=== PATIENT | male | born 1945 | race Caucasian/White ===

== ENCOUNTER 2019-07-22 07:34 | Day surgery (SDC) | payer MEDICARE, BC ==
[~2019-07-22] VITALS: Ht 175.3 cm; Wt 81.1 kg
[~2019-07-22 07:34] MED LIST: CELE100 PO; Lialda1.2 GM PO; METF500 PO; Purinethol50 MG PO
== END 2019-07-22 10:02 | disposition home or self-care (01) ==
LOC: ORSCSDS 07:34
PROVIDERS: Internal Medicine Gastroenterology
PROC: 0DBE8ZX Excision of Large Intestine, Via Natural or Artificial Opening Endoscopic, Diagnostic (ICD-10-PCS; principal; 2019-07-22 09:00)
PROC: 0DBP8ZX Excision of Rectum, Via Natural or Artificial Opening Endoscopic, Diagnostic (ICD-10-PCS; principal; 2019-07-22 09:00)
DX: K51.90 Ulcerative colitis, unspecified, without complications (principal); K62.1 Rectal polyp; K64.1 Second degree hemorrhoids; E11.9 Type 2 diabetes mellitus without complications; Z79.84 Long term (current) use of oral hypoglycemic drugs; Z79.899 Other long term (current) drug therapy
CPT/HCPCS: 82947; J0330; J2405; J2704; J7120

== ENCOUNTER → 2022-11-19 | Outpatient (CLI) | payer MEDICARE | LOC: LAB SHORT 15:02 → PLD 15:02 | DX: L72.9 Follicular cyst of the skin and subcutaneous tissue, unspecified (principal) | CPT/HCPCS: 88304 ==

== ENCOUNTER 2024-04-15 08:00 | Day surgery (SDC) | payer MEDICARE ==
[~2024-04-15] VITALS: Ht 175.3 cm; Wt 80.9 kg
[~2024-04-15 08:00] MED LIST changes: +ALEN10 PO; +GABA100; +GALA4 PO
[2024-04-15] MEDS ORDERED: Lactated Ringer's 1,000 ML IV ONE ×2 (09:03→09:16)
[2024-04-15] MEDS ORDERED: propofoL 50 ML IV ONE (09:04)
[2024-04-15 10:57] VITALS: BP 116/83
== END 2024-04-15 10:50 | disposition home or self-care (01) ==
LOC: ORSCSDS 08:00
PROVIDERS: Internal Medicine Gastroenterology
PROC: 0DBL8ZX Excision of Transverse Colon, Via Natural or Artificial Opening Endoscopic, Diagnostic (ICD-10-PCS; principal; 2024-04-15 09:30)
PROC: 0DBN8ZX Excision of Sigmoid Colon, Via Natural or Artificial Opening Endoscopic, Diagnostic (ICD-10-PCS; principal; 2024-04-15 09:30)
PROC: 0DBP8ZX Excision of Rectum, Via Natural or Artificial Opening Endoscopic, Diagnostic (ICD-10-PCS; principal; 2024-04-15 09:30)
PROC: 0DBK8ZX Excision of Ascending Colon, Via Natural or Artificial Opening Endoscopic, Diagnostic (ICD-10-PCS; principal; 2024-04-15 09:30)
PROC: 0DBH8ZX Excision of Cecum, Via Natural or Artificial Opening Endoscopic, Diagnostic (ICD-10-PCS; principal; 2024-04-15 09:30)
PROC: 0DBM8ZX Excision of Descending Colon, Via Natural or Artificial Opening Endoscopic, Diagnostic (ICD-10-PCS; principal; 2024-04-15 09:30)
DX: K51.90 Ulcerative colitis, unspecified, without complications (principal); K63.5 Polyp of colon; Z86.0102 Personal history of hyperplastic colon polyps; K64.8 Other hemorrhoids; E11.9 Type 2 diabetes mellitus without complications; Z86.19 Personal history of other infectious and parasitic diseases; G47.33 Obstructive sleep apnea (adult) (pediatric); E78.5 Hyperlipidemia, unspecified; Z79.84 Long term (current) use of oral hypoglycemic drugs; Z79.899 Other long term (current) drug therapy; Z87.891 Personal history of nicotine dependence
CPT/HCPCS: 82947; 88305; J2704; J7120

== ENCOUNTER 2024-04-21 09:29 | Day surgery (SDC) | payer MEDICARE ==
[~2024-04-21] VITALS: Ht 175.3 cm; Wt 81.4 kg
[~2024-04-21 09:29] MED LIST changes: +Balanced Salt Epinephrine Irrigation Solution 500 mL IR SCH; +Diazepam 5 MG Tab PO PRN; +Diazepam 5 MG Tab PO SCH; +Lidocaine HCl/Pf 1% 5 ML VIAL XX SCH; +Moxifloxacin HCL 0.5 MG/0.1 ML 0.4MLSYR LEFTEYE SCH; +Ondansetron 4 MG SoluTab MM PRN; +PHENYLEPHRINE\\TROPICAMIDE\\TETRACAINE OPHTHALMIC DILATING SOLN LEFTEYE PRN; +Povidone-Iodine 450 DROP/30 ML Solution LEFTEYE SCH; +Povidone-Iodine 450 DROP/30 ML Solution ONE; +Tetracaine HCl/Pf 0.5% Opth Soln 4 ml ONE
[2024-04-21] MEDS ORDERED: Diazepam 10 MG Tab ONE (10:25)
[2024-04-21] MEDS ORDERED: Ondansetron HCl 2 MG / ML 2ML Vial ONE (11:14)
[2024-04-21 11:47] VITALS: BP 121/85
--- NOTE | 2024-04-21 11:50 | NUR ---
04/21/24 1150 Ratna Jacobs HANDOFF TO GWENDOLYN KATZ
== END 2024-04-21 12:08 | disposition home or self-care (01) ==
LOC: ORSCSDS 09:29
PROVIDERS: Student in an Organized Health Care Education/Training Program
PROC: 08RK3JZ Replacement of Left Lens with Synthetic Substitute, Percutaneous Approach (ICD-10-PCS; principal; 2024-04-21 11:00)
DX: H25.813 Combined forms of age-related cataract, bilateral (principal); H52.202 Unspecified astigmatism, left eye; H21.81 Floppy iris syndrome; G47.33 Obstructive sleep apnea (adult) (pediatric); Z87.891 Personal history of nicotine dependence; E11.9 Type 2 diabetes mellitus without complications; Z79.84 Long term (current) use of oral hypoglycemic drugs; J45.909 Unspecified asthma, uncomplicated; Z79.899 Other long term (current) drug therapy
CPT/HCPCS: 82947; A9270; J2405; V2632

== ENCOUNTER 2024-04-28 08:59 | Day surgery (SDC) | payer MEDICARE ==
[~2024-04-28] VITALS: Ht 175.3 cm; Wt 52.8 kg
[~2024-04-28 08:59] MED LIST changes: -Diazepam 5 MG Tab PO PRN; -Diazepam 5 MG Tab PO SCH; -Moxifloxacin HCL 0.5 MG/0.1 ML 0.4MLSYR LEFTEYE SCH; +Moxifloxacin HCL 0.5 MG/0.1 ML 0.4MLSYR RIGHTEYE SCH; +NS 500 ML IV ONE; -Ondansetron 4 MG SoluTab MM PRN; -PHENYLEPHRINE\\TROPICAMIDE\\TETRACAINE OPHTHALMIC DILATING SOLN LEFTEYE PRN; +PHENYLEPHRINE\\TROPICAMIDE\\TETRACAINE OPHTHALMIC DILATING SOLN RIGHTEYE PRN; -Povidone-Iodine 450 DROP/30 ML Solution LEFTEYE SCH; +Povidone-Iodine 450 DROP/30 ML Solution RIGHTEYE SCH
[2024-04-28] MEDS ORDERED: NS 500 ML IV ONE (09:14)
[2024-04-28] MEDS ORDERED: FentaNYL Citrate 50 MCG/ML 2 ML Injection ONE (09:54)
[2024-04-28] MEDS ORDERED: Midazolam HCl 1MG / ML 2ML Vial ONE (09:54)
[2024-04-28 10:32] VITALS: BP 127/86
== END 2024-04-28 10:45 | disposition home or self-care (01) ==
LOC: ORSCSDS 08:59
PROVIDERS: Student in an Organized Health Care Education/Training Program
PROC: 08RJ3JZ Replacement of Right Lens with Synthetic Substitute, Percutaneous Approach (ICD-10-PCS; principal; 2024-04-28 11:00)
DX: E11.36 Type 2 diabetes mellitus with diabetic cataract (principal); H25.811 Combined forms of age-related cataract, right eye; H52.201 Unspecified astigmatism, right eye; Z96.1 Presence of intraocular lens; G47.33 Obstructive sleep apnea (adult) (pediatric); J45.909 Unspecified asthma, uncomplicated; K21.9 Gastro-esophageal reflux disease without esophagitis; Z79.84 Long term (current) use of oral hypoglycemic drugs; Z79.899 Other long term (current) drug therapy; I25.2 Old myocardial infarction
CPT/HCPCS: 82947; J2250; J3010; J7040; V2632

== ENCOUNTER 2024-05-18 07:53 | Day surgery (SDC) | payer MEDICARE ==
[~2024-05-18] VITALS: Ht 175.3 cm; Wt 79.8 kg
[~2024-05-18 07:53] MED LIST changes: -Balanced Salt Epinephrine Irrigation Solution 500 mL IR SCH; +Lactated Ringer's 1,000 ML IV ONE; -Lidocaine HCl/Pf 1% 5 ML VIAL XX SCH; -Moxifloxacin HCL 0.5 MG/0.1 ML 0.4MLSYR RIGHTEYE SCH; -NS 500 ML IV ONE; -PHENYLEPHRINE\\TROPICAMIDE\\TETRACAINE OPHTHALMIC DILATING SOLN RIGHTEYE PRN; -Povidone-Iodine 450 DROP/30 ML Solution ONE; -Povidone-Iodine 450 DROP/30 ML Solution RIGHTEYE SCH; -Tetracaine HCl/Pf 0.5% Opth Soln 4 ml ONE; +propofoL 50 ML IV ONE
[2024-05-18] MEDS ORDERED: Lactated Ringer's 1,000 ML IV ONE (09:51)
--- NOTE | 2024-05-18 10:38 | NUR ---
05/18/24 0002 Suzette Yusuf 4.5ML NACL USED FOR INJECTION FOR POLYPS
--- NOTE | 2024-05-18 11:42 | NUR ---
05/18/24 1142 Suzette Yusuf PT. FEELING PRESSURE VERBALIZES NEEDING TO URINATE. PT. VERBALIZES FEELING BLOATED, PT. UP TO BR & ABLE TO PASS OUT SOME AIR. PER PT. IT WASN'T FEEL THE BLOATEDNESS FROM NEEDING TO URINATE IT WAS THE AIR. PER PT., PT. VERBALZIES ABD. FEELING BETTER NOW.
[2024-05-18 16:15] VITALS: BP 116/84
== END 2024-05-18 11:05 | disposition home or self-care (01) ==
LOC: ORSCSDS 07:53
PROVIDERS: Internal Medicine Gastroenterology
PROC: 0DBP8ZX Excision of Rectum, Via Natural or Artificial Opening Endoscopic, Diagnostic (ICD-10-PCS; principal; 2024-05-18 09:30)
PROC: 3E0H8KZ Introduction of Other Diagnostic Substance into Lower GI, Via Natural or Artificial Opening Endoscopic (ICD-10-PCS; principal; 2024-05-18 09:30)
DX: K62.1 Rectal polyp (principal); Z86.0100 Personal history of colon polyps, unspecified
CPT/HCPCS: 82947; 88305; J2704; J7120